=== PATIENT | female | born 1940 | race Caucasian/White ===

== ENCOUNTER → 2023-02-17 | Outpatient (CLI) | payer MEDICARE ==
[~2023-02-17] MED LIST: ASPIRIN E.C. 8181 MG PO; CELEBREX 1100 MG/CAP PO; CELEXA 20MG20 MG/TAB PO; CEPHALEXIN500 M1 PO; CRESTOR5 MG PO; FOSAMAX 70MG TA70 MG PO; ILOTYCIN5 MG/GM OP; NORCO 325 MG-51 TAB PO; PRESERVISION A1 EAC3 PO; PRIL40 PO; REQUIP 0.5MG0.5 MG PO; REQUIP5 MG PO; SINEMET 25/101 UDTAB PO; VESICARE 5MG5 MG PO; WELLBUTRIN XL300 M1 PO
== END ==
LOC: MC.RAD 09:56
DX: Z12.31 Encounter for screening mammogram for malignant neoplasm of breast (principal); N64.89 Other specified disorders of breast

== ENCOUNTER → 2024-04-07 | Outpatient (CLI) | payer MEDICARE | LOC: MC.RAD 11:15 | DX: Z12.31 Encounter for screening mammogram for malignant neoplasm of breast (principal) ==